=== PATIENT | male | born 1955 | race African-American/Black ===

== ENCOUNTER 2017-12-02 05:22 | Emergency (ER) | payer MEDICAID ==
[~2017-12-02] VITALS: Ht 180.3 cm; Wt 80.7 kg
[2017-12-02 05:35] VITALS: BP 125/73
[2017-12-02] MEDS ORDERED: LIDODERM700 M1 TOPIC (05:54)
[2017-12-02] MEDS ORDERED: SOMA350 MG PO (05:54)
[2017-12-02] MEDS ORDERED: LYRICA100 MG ORAL (05:54)
[2017-12-02 06:07] VITALS: BP 124/2
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
== END 2017-12-02 06:07 | disposition home or self-care (01) ==
LOC: EMR 05:49
DX: G89.29 Other chronic pain (principal); F11.29 Opioid dependence with unspecified opioid-induced disorder; E11.9 Type 2 diabetes mellitus without complications; I10 Essential (primary) hypertension
CPT/HCPCS: 99283

== ENCOUNTER 2018-05-07 06:56 | Emergency (ER) | payer MEDICAID ==
[~2018-05-07] VITALS: Ht 180.3 cm; Wt 80.7 kg
[~2018-05-07 06:56] MED LIST: LIDODERM700 M1 TOPIC; LYRICA100 MG ORAL; SOMA350 MG PO
--- NOTE | 2018-05-07 07:14 | NUR ---
ED Nurse Note: PT WALKED IN TO ER TODAY FROM HOME. AOX4. PT C/O CHRONIC NECK AND BACK PAIN, 11/27 X 19 YEARS AGO. PT DENIES ANY RECENT TRAUMA OR INJURY. STEADY GAIT. LIMITED ROM OF NECK. PT DENIES NUMBNESS OR TINGLING.
[2018-05-07 07:17] VITALS: BP 124/76
[2018-05-07] MEDS ORDERED: NORCO 5-325 TA1 EACH ORAL (07:39)
[2018-05-07] MEDS ORDERED: LYRICA50 MG ORAL (07:39)
[2018-05-07] MEDS ORDERED: CYCLOBENZAPRINE10 MG ORAL (07:39)
[2018-05-07] MEDS ORDERED: LIDOCAINE700 M1 TP (07:39)
[2018-05-07] MEDS ORDERED: HYDROcodone/Acetamin 5/325 tab ORAL ONE (07:45)
--- NOTE | 2018-05-07 07:58 | Emergency Room Report ---
History of Present Illness General Chief Complaint: Back Pain-No Injury Source: Patient Present Illness HPI Patient has a history of chronic lower back pain. He sees a pain management physician. Patient states that his physician is in [place] and he is stuck in [place] because of some "case. As a result he's been having difficulty getting pain medications. He has been to our hospital before to obtain pain medications in the past. He states that he takes Lyrica, OxyContin , lidocaine patches and muscle relaxants. States that he's out of his medications. He denies any fever chest pain shortness breath. No complete or noted. Symptoms noted to be moderate. Denies any numbness tingling or difficulty with ambulation that is more than usual. He states that he does walk with a cane. He does have evidence of kyphosis in his posture.No other modifying factors. No other associated signs and symptoms. No other complaints were noted. Allergies: Coded Allergies: No Known Allergies (Unverified , 12/02/17) Patient History Past Medical History: DM, HTN, other - Chronic pain Past Surgical History: none Pertinent Family History: none Social History: Denies: smoking, alcohol use, drug use Reviewed Nursing Documentation: PMH: Agreed; PSxH: Agreed Nursing Documentation-PMH Hx Hypertension: Yes Hx Diabetes: Yes - TYPE 2 Review of Systems All Other Systems: negative except mentioned in HPI Physical Exam Vital Signs Date Time Temp Pulse Resp B/P (MAP) Pulse Ox O2 Delivery O2 Flow Rate FiO2 05/07/18 06:59 98.1 73 18 127/80 97 05/07/18 07:17 Room Air Sp02 EP Interpretation: reviewed, normal General Appearance: alert, mild distress - Uncomfortable due to pain Head: atraumatic Eyes: bilateral eye normal inspection ENT: normal ENT inspection, hearing grossly normal, normal voice Neck: normal inspection, full range of motion, supple, no bony tend Respiratory: normal inspection, lungs clear, normal breath sounds, no respiratory distress, no retraction, no wheezing Cardiovascular #1: regular rate, rhythm, no edema Gastrointestinal: normal inspection, normal bowel sounds, non tender, soft, no guarding, no hernia Genitourinary: no CVA tenderness Musculoskeletal: normal range of motion, other - Kyphosis, tender lower back paraspinal Neurologic: normal inspection, alert, responsive, speech normal Psychiatric: judgement/insight normal, depressed affect Skin: normal inspection, normal color, no rash Medical Decision Making Diagnostic Impression: Primary Impression: Chronic pain Additional Impression: Acute exacerbation of chronic low back pain ER Course Patient presents emergency department today complaining chronic pain. Patient is requesting pain medications. Differential diagnoses include chronic pain, opiate dependence. Review patient's medical records. In addition I also reviewed cares report. Patient had medications refilled about 5 days ago. He was given 5 days of Percocet. It appears that he's actually run out of these medications. I will give patient a small amount of [place] 10 tablets. I informed him that he needed follow-up as an outpatient. He was given prescription for Lidoderm as well as Lyrica. And Flexeril for muscle relaxants.Patient is advised to follow up with primary doctor in 2-3 days and return the emergency room for any worsening symptoms and as needed. Last Vital Signs Date Time Temp Pulse Resp B/P (MAP) Pulse Ox O2 Delivery O2 Flow Rate FiO2 05/07/18 07:17 98.4 74 16 124/76 98 Room Air Status: improved Disposition: HOME, SELF-CARE Condition: Stable Scripts Cyclobenzaprine Hcl* (FLEXERIL*) 10 Mg Tablet 10 MG ORAL THREE TIMES A DAY for 10 Days, TAB Prov: Fritz Westbrook MD 05/07/18 Pregabalin (Lyrica) 50 Mg Capsule 50 MG ORAL BID for 14 Days, CAP Prov: Fritz Westbrook MD 05/07/18 Lidocaine (Lidocaine) 1 Each Adh..patch 700 MG TP DAILY for 7 Days, PATCH Prov: Fritz Westbrook MD 05/07/18 Hydrocodone Bit/Acetaminophen 5-325* (NORCO 5-325*) 1 Each Tablet 1 TAB ORAL Q6H PRN for For Pain, #10 TAB 0 Refills Prov: Fritz Westbrook MD 05/07/18 [facility]errals: [facility]ERR[facility] (PCP) Fritz Westbrook MD May 07, 2018 07:58
--- NOTE | 2018-05-07 08:06 | NUR ---
ED Nurse Note: PT SITTING PEACEFULLY IN BED IN NAD. AOX4. PRESCRIPTIONS AND DISCHARGE PAPERWORK EXPLAINED TO PT. PT VERBALIZES UNDERSTANDING AND ALL QUESTIONS ANSWERED. PRESCRIPTIONS AND DISCHARGE PAPERWORK GIVEN TO PT AND ID WRISTBAND REMOVED. PT WALKED OUT OF ER WITH STEADY GAIT AND ALL BELONGINGS.
[2018-05-07 08:07] VITALS: BP 120/74
== END 2018-05-07 08:07 | disposition home or self-care (01) ==
LOC: EMR 07:29
DX: M54.5 Low back pain (principal); G89.29 Other chronic pain; I10 Essential (primary) hypertension; E11.9 Type 2 diabetes mellitus without complications
CPT/HCPCS: 99282

== ENCOUNTER 2018-08-01 07:04 | Emergency (ER) | payer MEDICAID ==
[~2018-08-01] VITALS: Ht 180.3 cm; Wt 80.7 kg
[~2018-08-01 07:04] MED LIST changes: +CYCLOBENZAPRINE10 MG ORAL; +LIDOCAINE700 M1 TP; +LYRICA50 MG ORAL; +NORCO 5-325 TA1 EACH ORAL
[2018-08-01 07:14] VITALS: BP 124/75
--- NOTE | 2018-08-01 07:17 | NUR ---
ED Nurse Note: pt walked in from home c/o chronic neck and back pain pt alert oriented nad awaiting ermd eval.
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
[2018-08-01] MEDS ORDERED: HYDROcodone/Acetamin 5/325 tab ORAL ONE (07:45)
[2018-08-01] MEDS ORDERED: Cyclobenzaprine 10mg Tab ORAL ONE (07:45)
--- NOTE | 2018-08-01 07:57 | NUR ---
ED Nurse Note: wojciech wolf done pt refused meds pt states Can't help me. Pt awaiting d/c states he wants to go .
--- NOTE | 2018-08-01 08:12 | NUR ---
ED Nurse Note: pt given aci pt read it and plced it in his bag however pt refused to sign signiture sheet. pt verbalized understanding ambulated out o er with steady cane gait. i asked to remove pt's Id band pt stated he placed it in the trash . i checked the trash and it was not in there . pt later removed it from his pocket and handed it to me. pt walked out cursing.
[2018-08-01 08:16] VITALS: BP 0/0
--- NOTE | 2018-08-01 08:17 | NUR ---
ED Nurse Note: pt refused to have final d/c bp taken.
[2018-08-01] MEDS ORDERED: LIDOCAINE700 M1 TP (20:33)
[2018-08-01] MEDS ORDERED: LYRICA100 MG ORAL (20:33)
== END 2018-08-01 08:15 | disposition home or self-care (01) ==
LOC: EMR 08:11
DX: G89.29 Other chronic pain (principal); M54.2 Cervicalgia; Z88.6 Allergy status to analgesic agent; I10 Essential (primary) hypertension; E11.9 Type 2 diabetes mellitus without complications
CPT/HCPCS: 99281

== ENCOUNTER 2018-08-01 19:59 | Emergency (ER) | payer MEDICAID ==
[~2018-08-01] VITALS: Ht 180.3 cm; Wt 79.4 kg
--- NOTE | 2018-08-01 20:18 | NUR ---
ED Nurse Note: Received report. Pt ambulatory, AAOx4, from home, c/o upper neck and back pain 11/27. Pt was here this morning and came back because he said pain has worsened since then. Will assess and carry out ER MD's orders.
[2018-08-01 20:21] VITALS: BP 148/82
[2018-08-01] MEDS ORDERED: Acetaminophen 500mg (ES) tab ORAL ONE (20:30)
[2018-08-01] MEDS ORDERED: LIDOCAINE700 M1 TP (20:33)
[2018-08-01] MEDS ORDERED: LYRICA100 MG ORAL (20:33)
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
--- NOTE | 2018-08-01 21:10 | NUR ---
ED Nurse Note: Pt cleared by health care Provider for discharge. DC instructions/prescription was given and explained to pt and verbalized understanding of teachings. All medical deviecs such as ID band removed. Pt is AAO x4, ambulatory and left with all personal belongings.
== END 2018-08-01 21:10 | disposition home or self-care (01) ==
LOC: EMR 20:36
DX: G89.29 Other chronic pain (principal); F11.20 Opioid dependence, uncomplicated; M54.2 Cervicalgia; M54.9 Dorsalgia, unspecified; I10 Essential (primary) hypertension; E11.9 Type 2 diabetes mellitus without complications; Z88.6 Allergy status to analgesic agent
CPT/HCPCS: 99282